=== PATIENT | female | born 1990 | race African-American/Black ===

== ENCOUNTER 2023-08-01 06:07 | Day surgery (SDC) | payer OTHER ==
[2023-07-27 16:39] VITALS: BMI 31.7
[~2023-08-01 06:07] MED LIST: DEXAMETHASONE SOD PHOSPHATE 4 MG/ML 1 ML VIAL IV ONE; ONDANSETRON 4 MG/2 ML VIAL IVP ONE; metroNIDAZOLE-NS PMX 500 MG in SALINE 1 100ML.BAG IVPB PRN
[2023-08-01] MEDS ORDERED: fentaNYL (PF) 50 MCG/ML 2 ML AMP IV PRN (07:00)
[2023-08-01] MEDS ORDERED: LIDOCAINE 1% INJ 10MG/ML (20 ML MDV) ONE (07:36)
[2023-08-01] MEDS ORDERED: MIDAZOLAM 2 MG/2 ML VIAL ONE (07:36)
[2023-08-01] MEDS ORDERED: KETOROLAC 15 MG/ML 1 ML VIAL ONE (07:36)
[2023-08-01] MEDS ORDERED: PROPOFOL 10 MG/ML 20 ML VIAL IV ONE (07:36)
[2023-08-01] MEDS ORDERED: SUCCINYLCHOLINE CHLORIDE 200 MG/10 ML VIAL IV ONE (07:36)
[2023-08-01] MEDS ORDERED: fentaNYL (PF) 50 MCG/ML 2 ML AMP ONE (07:36)
[2023-08-01] MEDS: LACTATED RINGERS 1,000 ML IV SCH (07:55)
[2023-08-01] MEDS: LIDOCAINE 2%-EPI 1:100,000 20 ML VIAL SUBMUCOSAL ONE ×2 (08:15)
[2023-08-01 09:50] VITALS: TEMP 97.4
[2023-08-01] MEDS ORDERED: ACETAMINOPHEN TAB 500 MG TAB ONE (10:16)
[2023-08-01] MEDS: ACETAMINOPHEN TAB 500 MG TAB PO ONE (10:18)
[2023-08-01 10:37] VITALS: BP 101/62; RESP 16
[2023-08-01 10:38] VITALS: PULSE 80
--- NOTE | 2023-08-02 09:16 | OP ---
OPERATIVE REPORT DATE OF SERVICE : 08/01/2023 PREOPERATIVE DIAGNOSES: 1. Impacted left mandibular wisdom tooth. 2. Abscessed wisdom tooth. 3. Pericoronitis. POSTOPERATIVE DIAGNOSES: 1. Impacted left mandibular wisdom tooth. 2. Abscessed wisdom tooth. 3. Pericoronitis. PROCEDURE PERFORMED: Surgical extraction of tooth #17. ANESTHESIA: General via oral endotracheal intubation. ESTIMATED BLOOD LOSS: 1 mL. DRAINS: None. COMPLICATIONS: None. SPECIMENS: None. INDICATIONS FOR PROCEDURE: The patient is a 32-year-old black female who was referred for the extraction of tooth #17. She states that she has had significant pain and swelling associated with this impacted tooth. She will now undergo removal of this tooth in the OR setting. The patient has sickle cell anemia. The risks, benefits, and alternatives of the procedure were reviewed with the patient at length and all of her questions were answered to her satisfaction. DESCRIPTION OF PROCEDURE: The patient was taken to the operating room, placed on the operating table in the supine position. Next, the patient was induced via the IV route and the patient was intubated orally. A general plane of anesthesia was then maintained throughout the operative course. The surgeon approached the operative field and the patient was prepped and draped in usual manner for this procedure. Next, a throat pack was placed notifying both Nursing and Anesthesia. Attention was then directed to area #17 where 4 mL of 2% lidocaine with 1:100,000 parts epinephrine was infiltrated into the region and used to provide a left mandibular buccal block and lingual block. Next, a 15 blade was utilized to make an envelope flap and a subperiosteal dissection ensued. The buccal bone was removed covering the impacted tooth and the tooth was sectioned and was removed utilizing an elevator technique. The wound was irrigated thoroughly and 3-0 Vicryl was then utilized to reapproximate the flap for closure. Hemostasis was obtained. The patient tolerated the procedure well without complication. The throat pack was removed notifying both Nursing and Anesthesia. The patient was then transferred to the postanesthetic care unit breathing spontaneously and hemodynamically stable. MMODL / IJN: [id number] /
== END 2023-08-01 10:38 | disposition home or self-care (01) ==
LOC: OR 06:07
PROVIDERS: ATTEND Dentist Oral and Maxillofacial Surgery
DX: K01.1 Impacted teeth (principal); K05.30 Chronic periodontitis, unspecified; K04.7 Periapical abscess without sinus; D57.20 Sickle-cell/Hb-C disease without crisis
CPT/HCPCS: 81025; 41899; J2250; J0330; J0690; J2001; J3010; J1885; J2704